=== PATIENT | male | born 1975 | race African-American/Black ===

== ENCOUNTER 2021-04-17 17:07 | Emergency (ER) | payer SELFPAY ==
[~2021-04-17] VITALS: Ht 177.8 cm; Wt 105.0 kg
[2021-04-17 18:51] LABS: HEMATOCRIT 43.2 % (39.0-50.0); HEMOGLOBIN 14.1 g/dl (14.0-18.0); IMMATURE GRANULOCYTES 0.1 % (0.0-5.0); MEAN CELL VOLUME 84.2 fL CALC (80.0-100.0); MEAN CORPUSCULAR HGB 27.5 pG CALC (26.0-32.0); MEAN CORPUSCULAR HGB CONC 32.6 g/dL CAL (32.0-36.0); NEUT# 4.87 thou/uL (1.82-7.42); RED BLOOD COUNT 5.13 mill/uL (4.70-6.10); RED CELL DISTRI WIDTH 13.2 % (11.5-15.5)
[2021-04-17 19:04] LABS: ALBUMIN 5.1 g/dL (3.2-5.0); ALKALINE PHOSPHATASE 62 u/l (38-126); ANION GAP 15 (6-22 (CALC)); BILIRUBIN, TOTAL 0.7 mg/dL (0.0-1.4); BUN 18 mg/dL (9-20); BUN/CREATININE RATIO 12 (12-20 (CALC)); CARBON DIOXIDE 29 mmol/l (22-30); CHLORIDE 102 mmol/l (95-108); CREATININE 1.5 mg/dL (0.7-1.3); GFR 51 ML/MIN (>=60 (CALC)); GFR FOR AFR.AMER. > 60 ML/MIN (>=60 (CALC)); SGOT/AST 38 u/l (17-59); SODIUM 142 mmol/l (137-146); TOTAL PROTEIN 9.3 g/dL (6.3-8.2)
[2021-04-17 19:47] LABS: URINE BILIRUBIN - DIPSTICK NEGATIVE (NEGATIVE); URINE BLOOD DIPSTICK NEGATIVE (NEGATIVE); URINE COLOR YELLOW; URINE GLUCOSE - DIPSTICK NEGATIVE (NEGATIVE); URINE KETONE NEGATIVE (NEGATIVE); URINE LEUK ESTERASE NEGATIVE (NEGATIVE); URINE PROTEIN - DIPSTICK TRACE mg/dL (NEG-TRACE); URINE SPECIFIC GRAVITY 1.015; URINE UROBILINOGEN - DIPSTICK 0.2 E.U./dL (0.2)
[2021-04-17 19:49] LABS: URINE NITRITE - DIPSTICK NEGATIVE (Negative)
[2021-04-17 20:05] LABS: GFR 60 ML/MIN (>=60 (CALC)); GFR FOR AFR.AMER. > 60 ML/MIN (>=60 (CALC))
[2021-04-17 20:10] VITALS: BP 147/66
== END 2021-04-17 20:16 | disposition home or self-care (01) | DRG 641 ==
LOC: ED 17:07
DX: E86.0 Dehydration (principal); K21.9 Gastro-esophageal reflux disease without esophagitis; X30.XXXA Exposure to excessive natural heat, initial encounter; Y92.321 Football field as the place of occurrence of the external cause